=== PATIENT | male | born 1960 | race Caucasian/White ===

== ENCOUNTER 2017-09-30 08:17 | Observation (INO) ==
[2017-09-30] MEDS ORDERED: Ondansetron 4 MG/2 ML VIAL IVP ONE (08:55)
[2017-09-30] MEDS ORDERED: *HR* HYDROmorphone (PF) 1 MG/ML SYRINGE IVP ONE (09:00)
[2017-09-30] MEDS ORDERED: 0.9 % Sodium Chloride 1,000 ML IVC ONE (09:01)
--- NOTE | 2017-09-30 09:07 | Emergency Department Note ---
Disposition Clinical Impression: Appendicitis Qualifiers: Appendicitis type: acute appendicitis Acute appendicitis type: unspecified acute appendicitis type Qualified Code(s): K35.80 - Unspecified acute appendicitis Disposition: Admitted As Inpatient Condition: Fair Time of Disposition: 10:32 General Adult HPI - General Chief complaint: ED Abdominal Pain Stated complaint: abd pain Time Seen by Provider: 09/30/17 08:34 Source: patient, family Limitations: no limitations Nursing Notes Reviewed: Yes Vital Signs Reviewed: Yes - History of Present Illness HPI Narrative: Patient is a 57-year-old male with a history of high cholesterol and hernia repair performed one year ago presenting with a complaint of right lower quadrant abdominal pain and diffuse cramping is been going on since 1600 yesterday. The patient states the pain onset suddenly describes the right lower quadrant pain as a ache that is a 10 out of 10 and then he also has noted diffuse abdominal cramping that is intermittent. He states that the pain has been worsening since that time. He states that if he is standing up the pain feels better if he is sitting down pain feels worse he does not notice any other correlations. The patient states he also has associated nausea and loss of appetite. He denies any fevers, chills, vomiting, chest pain or shortness of breath, flank pain, urinary symptoms such as dysuria or discharge and also denies any testicular pain. Discussed denies any rash. Pain Scale: 10 - Related Data Home Medications Medication Instructions Recorded Confirmed Biotin 1,000 mcg PO DAILY 12/18/16 09/30/17 Cod Liver Oil 1 each PO DAILY 12/18/16 09/30/17 Folic Acid 0.4 mg PO DAILY 12/18/16 09/30/17 Magnesium Amino Acid Chelate 200 mg PO DAILY 12/18/16 09/30/17 [Magnesium] Selenium 200 mcg PO DAILY 12/18/16 09/30/17 Vitamin K2 40 mcg PO DAILY 12/18/16 09/30/17 Zinc [Zinc Lozenge] 50 mg PO DAILY 12/18/16 09/30/17 Arginine HCl [l-Arginine] 1,000 mg PO DAILY 09/30/17 09/30/17 Ascorbic Acid [Vitamin C] 500 mg PO DAILY 09/30/17 09/30/17 Cholecalciferol (Vitamin D3) 2,000 unit PO DAILY 11/05/17 11/05/17 [Vitamin D] Allergies Allergy/AdvReac Type Severity Reaction Status Date / Time phenazopyridine AdvReac Unknown "unable to Verified 09/30/17 08:28 [From Pyridium] get out of bed" per patient Review of Systems: Constitutional: No fever, chills Vision: No blurred vision ENT: No rhinorrhea Respiratory: No cough, no shortness of breath Allergic: No allergies : No blood in urine, no dysuria, no discharge or testicular pain GI: No blood in stool, no vomiting or diarrhea. No black or tarry stool or blood. Patient does have diffuse abdominal pain greatest in the right lower quadrant. Hematologic: No bruising Dermatologic: No skin rash Musculoskeletal: No pain in the extremities. No flank pain. Neuro: No numbness of the extremities All systems ED: reviewed and negative except as stated. Past Medical History - Past Medical History Medical history: Reports: cancer, hyperlipidemia Surgical history: Reports: herniorrhaphy, orthopedic, other, other Psychiatric history: Reports: anxiety - Social History Smoking Status: Never smoker Smokeless Tobacco Status: No Alcohol use: Reports: rarely Drug use: Reports: none Physical Exam Patient does appear to be in mild to moderate discomfort he is splinting up in bed. He is able to speak in full sentences. CONSTITUTIONAL: Alert and oriented X3, well-nourished, well appearing. HEAD: Normocephalic; atraumatic. EYES: PERRL, no scleral icterus. NOSE: The nose is normal in appearance without rhinorrhea RESP: Normal chest excursion with respiration; breath sounds clear and equal bilaterally; no wheezes, rhonchi, or rales CARD: Regular rhythm, without murmurs, rub or gallop ABD: Patient has diffuse abdominal pain with greatest tenderness in the right lower quadrant he does have rigidity and he is severely tender with mild palpation in that region. SKIN: Normal for age and race; warm and dry; no apparent lesions - General Limitations: no limitations General appearance: alert, in no apparent distress Course Course Narrative: Patient is a 57-year-old male with a past medical history of a hernia repair surgery that was done 1 year ago he is presenting with right lower quadrant pain that started suddenly associated symptoms include loss of appetite and nausea. Plan as stated abdominal lab workup on him. I have also ordered for a CT scan with IV contrast to rule out appendicitis. I treated his pain and his nausea. Will reevaluate and discuss labs and they are available. - Reevaluation(s) Reevaluation #1: Patient CT scan of his abdomen reveals an uncomplicated appendicitis. We will add Zosyn at the surgeon's request. I discussed Patient case with Dr. Yañez she agrees to accept the patient for surgery. Time: 10:30 Vital Signs Temperature 97.7 F 09/30/17 08:24 Pulse Rate 60 09/30/17 08:24 Respiratory Rate 16 09/30/17 08:24 Blood Pressure 129/87 09/30/17 08:24 O2 Sat by Pulse Oximetry 97 09/30/17 08:24 Temperature 97.7 F 09/30/17 08:24 Pulse Rate 81 09/30/17 11:04 Respiratory Rate 17 09/30/17 11:04 Blood Pressure 117/80 09/30/17 11:04 O2 Sat by Pulse Oximetry 95 09/30/17 11:04 Oxygen Delivery Oxygen Delivery Room Air Medical Decision Making - Medical Records Medical records reviewed: Yes I reviewed the patient's medical records. - Lab Data Lab results reviewed: Yes I reviewed the patient's lab results. Result diagrams: 09/30/17 09:08 09/30/17 09:08 Lab Results 09/30/17 09/30/17 09/30/17 Range/Units 08:35 09:08 09:08 WBC 11.3 H (4.3-11.1) K/mcL RBC 5.27 (4.19-5.50) M/mcL Hgb 15.4 (12.9-16.9) g/dL Hct 44.0 (37.5-50.1) % MCV 83.5 (83.0-100.0) fL MCH 29.2 (28.0-33.3) pg MCHC 35.0 (31.6-35.5) g/dL RDW 12.8 (11.5-14.5) % Plt Count 135 L (140-400) K/mcL MPV 9.6 (9.4-12.4) fL Immature Gran % 0.4 (0-4) % Seg Neutrophils % 76.3 % Lymphocytes % 15.3 % Monocytes % 7.1 % Eosinophils % 0.6 % Basophils % 0.3 % Neutrophils # 8.7 (1.6-8.9) K/mcL Lymphocytes # 1.7 (0.6-4.6) K/mcL Monocytes # 0.8 (0.0-1.3) K/mcL Eosinophils # 0.1 (0.0-0.6) K/mcL Basophils # 0.0 (0.0-0.2) K/mcL Sodium 139 (136-145) mEq/L Potassium 3.4 L (3.5-4.5) mEq/L Chloride 106 (98-109) mEq/L Carbon Dioxide 23 (19-29) mEq/L BUN 15 (8-26) mg/dL Creatinine 0.81 (0.72-1.25) mg/dL Est GFR ( Amer) > 60 (> 60) Est GFR (Non-Af Amer) > 60 (> 60) BUN/Creatinine Ratio 19 (6-26) Glucose 81 (70-99) mg/dL Calculated Osmolality 288 (280-300) Lactic Acid (0.5-2.2) mmol/L Calcium 8.6 (8.6-10.8) mg/dL Total Bilirubin 1.2 (0.2-1.2) mg/dL Direct Bilirubin 0.4 (0.0-0.5) mg/dL Indirect Bilirubin 0.8 (0.0-1.2) mg/dL AST 25 (5-34) Units/L ALT 33 (0-55) Units/L Alkaline Phosphatase 82 (38-126) Units/L Serum Total Protein 7.2 (6.0-8.3) g/dL Albumin 3.8 (3.5-5.0) g/dL Globulin 3.4 (2.4-3.5) g/dL Albumin/Globulin Ratio 1.1 (1.1-2.2) Amylase 58 (25-125) Units/L Lipase 42 (8-78) Units/L Urine Color Yellow (Yellow) Urine Clarity Clear (Clear) Urine pH 6.5 (5.0-8.0) pH Units Ur Specific Cache 1.016 (1.010-1.025) Urine Protein Negative (Neg-Trace) mg/dL Urine Glucose (UA) Normal (Normal) mg/dL Urine Ketones Negative (Negative) mg/dL Urine Blood Negative (Negative) Urine Nitrite Negative (Negative) Urine Bilirubin Negative (Negative) Urine Urobilinogen Normal (Normal) mg/dL Ur Leukocyte Esterase Negative (Negative) Ur Culture Indicated? NO (NO) 09/30/17 Range/Units 09:08 WBC (4.3-11.1) K/mcL RBC (4.19-5.50) M/mcL Hgb (12.9-16.9) g/dL Hct (37.5-50.1) % MCV (83.0-100.0) fL MCH (28.0-33.3) pg MCHC (31.6-35.5) g/dL RDW (11.5-14.5) % Plt Count (140-400) K/mcL MPV (9.4-12.4) fL Immature Gran % (0-4) % Seg Neutrophils % % Lymphocytes % % Monocytes % % Eosinophils % % Basophils % % Neutrophils # (1.6-8.9) K/mcL Lymphocytes # (0.6-4.6) K/mcL Monocytes # (0.0-1.3) K/mcL Eosinophils # (0.0-0.6) K/mcL Basophils # (0.0-0.2) K/mcL Sodium (136-145) mEq/L Potassium (3.5-4.5) mEq/L Chloride (98-109) mEq/L Carbon Dioxide (19-29) mEq/L BUN (8-26) mg/dL Creatinine (0.72-1.25) mg/dL Est GFR ( Amer) (> 60) Est GFR (Non-Af Amer) (> 60) BUN/Creatinine Ratio (6-26) Glucose (70-99) mg/dL Calculated Osmolality (280-300) Lactic Acid 1.2 (0.5-2.2) mmol/L Calcium (8.6-10.8) mg/dL Total Bilirubin (0.2-1.2) mg/dL Direct Bilirubin (0.0-0.5) mg/dL Indirect Bilirubin (0.0-1.2) mg/dL AST (5-34) Units/L ALT (0-55) Units/L Alkaline Phosphatase (38-126) Units/L Serum Total Protein (6.0-8.3) g/dL Albumin (3.5-5.0) g/dL Globulin (2.4-3.5) g/dL Albumin/Globulin Ratio (1.1-2.2) Amylase (25-125) Units/L Lipase (8-78) Units/L Urine Color (Yellow) Urine Clarity (Clear) Urine pH (5.0-8.0) pH Units Ur Specific Cache (1.010-1.025) Urine Protein (Neg-Trace) mg/dL Urine Glucose (UA) (Normal) mg/dL Urine Ketones (Negative) mg/dL Urine Blood (Negative) Urine Nitrite (Negative) Urine Bilirubin (Negative) Urine Urobilinogen (Normal) mg/dL Ur Leukocyte Esterase (Negative) Ur Culture Indicated? (NO) - Radiology Data Radiology results reviewed: Yes I reviewed the patient's radiology results. Abdomen/Pelvis CT 09/30/17 08:52 IMPRESSION: Evidence of acute uncomplicated appendicitis. D/ / Socorro Hernandes Cha, MD / Socorro Hernandes Cha, MD Interpreting Provider: Socorro Hernandes Cha, MD Critical Care Time Critical Care Time: Yes Total Critical Care Time: 35 Attestation: Rectal care time 35 minutes managing acute appendicitis. Attestation Statement - Attestation Attestation: Patient was seen with resident physician. I reviewed the history, physical, assessment and plan, and agree with the findings. I also personally evaluated this patient and had [id number] time with this patient. 57-year-old male presents to the emergency department with one-day history of right lower quadrant abdominal pain. Patient states the pain started suddenly it is focused in the right lower quadrant it does not radiate. He has not had any changes in bowel or bladder habits. He has not had nausea vomiting. He denies fevers or chills. Patient's states that he does not like going to the doctor and this is definitely out of the ordinary for him to want to come in for evaluation and treatment. On examination vital signs are stable. ENT is unremarkable. Heart and lungs are both normal. Abdomen is soft but there is definitely guarding and a large amount of tenderness in the right lower quadrant. The pain is specifically focused to that location. Neurologically the patient is intact. ED course we will do an appendicitis workup for this patient including a CT scan with IV contrast. We will also check lab testing. CT scan of the abdomen and pelvis revealed acute appendicitis. We contacted the surgeon. Patient was taken from the ER to the OR for definitive surgical management of his acute appendicitis. Critical care time 35 minutes. We will also treat the patient's pain and/or best to help him be comfortable. Agree with the resident physician assessment and plan.
[2017-09-30 09:13] LABS: Bilirubin,Urine Negative (Negative); Blood,Urine Negative (Negative); Clarity,Urine Clear (Clear); Color,Urine Yellow (Yellow); Glucose,Urine (UA) Normal (Normal); Ketones,Urine Negative (Negative); Leukocyte Esterase,Urine Negative (Negative); Nitrite,Urine Negative (Negative); PH,Urine 6.5 pH Units (5.0-8.0); Protein,Urine Negative (Neg-Trace); Specific Gravity,Urine 1.016 (1.010-1.025); Urobilinogen,Urine Normal (Normal)
[2017-09-30 09:17] LABS: Basophils % 0.3 %; Eosinophils # 0.1 K/mcL (0.0-0.6); Eosinophils % 0.6 %; Hemoglobin 15.4 g/dL (12.9-16.9); Immature Granulocytes % 0.4 % (0-4); Lymphocytes # 1.7 K/mcL (0.6-4.6); Lymphocytes % 15.3 %; Mean Corpuscular Hemoglobin 29.2 pg (28.0-33.3); Mean Corpuscular Volume 83.5 fL (83.0-100.0); Mean Platelet Volume 9.6 fL (9.4-12.4); Monocytes # 0.8 K/mcL (0.0-1.3); Monocytes % 7.1 %; Neutrophils # 8.7 K/mcL (1.6-8.9); Platelet Count 135 K/mcL (140-400); Red Blood Count 5.27 M/mcL (4.19-5.50); Red Cell Distribution Width 12.8 % (11.5-14.5); Segmented Neutrophils % 76.3 %
[2017-09-30 09:31] LABS: Alanine Aminotransferase 33 Units/L (0-55); Albumin 3.8 g/dL (3.5-5.0); Albumin/Globulin Ratio 1.1 (1.1-2.2); Alkaline Phosphatase 82 Units/L (38-126); Amylase 58 Units/L (25-125); Aspartate Amino Transferase 25 Units/L (5-34); BUN/Creatinine Ratio 19 (6-26); Bilirubin,Direct 0.4 mg/dL (0.0-0.5); Bilirubin,Indirect 0.8 mg/dL (0.0-1.2); Bilirubin,Total 1.2 mg/dL (0.2-1.2); Blood Urea Nitrogen 15 mg/dL (8-26); Calcium 8.6 mg/dL (8.6-10.8); Carbon Dioxide 23 mEq/L (19-29); Chloride 106 mEq/L (98-109); Globulin 3.4 g/dL (2.4-3.5); Glucose 81 mg/dL (70-99); Lipase 42 Units/L (8-78); Osmolality,Calculated 288 (280-300); Potassium 3.4 mEq/L (3.5-4.5); Sodium 139 mEq/L (136-145); Total Protein 7.2 g/dL (6.0-8.3); eGFR For African Americans > 60 (> 60); eGFR For Non-African Americans > 60 (> 60)
[2017-09-30] MEDS ORDERED: Piperacillin/Tazobactam 3.375 GM in D5% in Water 50 ML IVPB ONE (10:38)
[2017-09-30] MEDS ORDERED: Piperacillin/Tazobactam 3.375 GM in D5% in Water (Mini-Bag+) 100 ML IVPB ONE (10:45)
--- NOTE | 2017-09-30 10:56 | General Surg History&Physical ---
<Vu James - Last Filed: 09/30/17 11:01> Date of Encounter: 09/30/17 Time of Encounter: 10:30 Assessment and Plan (1) Appendicitis Current Visit: Yes Status: Acute Patient presented to the emergency department with complaint of right lower quadrant abdominal pain. CT scan performed performed on 09/30/17 demonstrated the presence of uncomplicated appendicitis. White count elevated at 11.3. Vital signs within normal limits. Plan: -NPO. -Zosyn 3.375g. -Patient will be taken surgery. Qualifiers: Appendicitis type: acute appendicitis Acute appendicitis type: unspecified acute appendicitis type Qualified Code(s): K35.80 - Unspecified acute appendicitis History of Present Illness Chief complaint: Right lower quadrant abdominal pain HPI: Mr. Pop is a 57 year old male with a past medical history of hyperlipidemia and hernia repair one year ago who presented to the emergency department with chief complaint of right lower quadrant abdominal pain. He states this pain started at approximately 4 PM last evening. It was accompanied by nausea and a loss of appetite. Patient has not eaten anything since then. He describes this pain as diffuse abdominal pain that is worse in the right lower quadrant. He rates his pain 10 out of 10. Patient notes that his pain is relieved upon standing and is made worse with sitting. No other exacerbating or relieving factors. Patient denies having any fever, chills, or vomiting.Upon arrival to the emergency department, patient's vital signs were within normal limits. He had elevated white count of 11.3. CT scan of the abdomen revealed the presence of uncomplicated appendicitis. Pain and nausea are well-controlled with medication administered in the ER. Patient was started on Zosyn. He will be taken to surgery. Past Med Surg Social Fam HX - Past Medical History Medical history: cancer, hyperlipidemia Psychiatric history: anxiety - Past Surgical History Surgical History: herniorrhaphy, orthopedic, other, other - Social History Smoking Status: Never smoker Smokeless Tobacco Status: No Alcohol use: rarely Drug use: none Medications and Allergies Biotin 1,000 mcg PO DAILY 12/18/16 [History] Cod Liver Oil 1 each PO DAILY 12/18/16 [History] Folic Acid 0.4 mg PO DAILY 12/18/16 [History] Magnesium Amino Acid Chelate [Magnesium] 200 mg PO DAILY 12/18/16 [History] Selenium 200 mcg PO DAILY 12/18/16 [History] Vitamin K2 40 mcg PO DAILY 12/18/16 [History] Zinc [Zinc Lozenge] 50 mg PO DAILY 12/18/16 [History] Arginine HCl [l-Arginine] 1,000 mg PO DAILY 09/30/17 [History] Ascorbic Acid [Vitamin C] 500 mg PO DAILY 09/30/17 [History] Cholecalciferol (Vitamin D3) [Vitamin D] 2,000 unit PO DAILY 09/30/17 [History] 3 Allergy/AdvReac Type Severity Reaction Status Date / Time phenazopyridine AdvReac Unknown "unable to Verified 09/30/17 08:28 [From Pyridium] get out of bed" per patient Review of Systems All systems PM: A 10-system review of systems was performed and is negative for pertinent findings except as documented above in the HPI. - Constitutional anorexia, no chills, no excessive sweating, no fatigue, no fever(s), no lethargy , no malaise - Cardiovascular no chest pain, no chest pain at rest, no chest pain with activity, no pedal edema, no rapid heart rate - Respiratory no dyspnea on exertion, no wheezing - Gastrointestinal abdominal pain, cramping, no bloating, no diarrhea, no heartburn - Psychiatric change in appetite General Surgery Exam Initial Vital Signs Temp Pulse Resp BP Pulse Ox 97.7 F 60 16 129/87 97 09/30/17 08:24 09/30/17 08:24 09/30/17 08:24 09/30/17 08:24 09/30/17 08:24 - General physical appearance well developed, well nourished, moderate pain - Respiratory normal expansion, normal respiratory effort, clear to percussion, clear to auscultation - Cardiovascular Cardiovascular exam: Present: RRR, no murmurs/rubs/gallops - Abdomen Abdomen general surgery: Present: bowel sounds present, soft, tender Abdominal Tenderness: Present: RLQ, diffusely - Psychiatric Psychiatric general surgery: Present: appropriate, oriented to person, oriented to place, oriented to time, speech is normal, memory intact Results - Labs 09/30/17 09:08 09/30/17 09:08 Abnormal lab results WBC 11.3 K/mcL (4.3-11.1) H 09/30/17 09:08 Plt Count 135 K/mcL (140-400) L 09/30/17 09:08 Potassium 3.4 mEq/L (3.5-4.5) L 09/30/17 09:08 Diabetes panel 09/30/17 Range/Units 09:08 Sodium 139 (136-145) mEq/L Potassium 3.4 L (3.5-4.5) mEq/L Chloride 106 (98-109) mEq/L Carbon Dioxide 23 (19-29) mEq/L BUN 15 (8-26) mg/dL Creatinine 0.81 (0.72-1.25) mg/dL Glucose 81 (70-99) mg/dL Calcium 8.6 (8.6-10.8) mg/dL AST 25 (5-34) Units/L ALT 33 (0-55) Units/L Alkaline Phosphatase 82 (38-126) Units/L Albumin 3.8 (3.5-5.0) g/dL Calcium panel 09/30/17 Range/Units 09:08 Calcium 8.6 (8.6-10.8) mg/dL Albumin 3.8 (3.5-5.0) g/dL Pituitary panel 09/30/17 Range/Units 09:08 Sodium 139 (136-145) mEq/L Potassium 3.4 L (3.5-4.5) mEq/L Chloride 106 (98-109) mEq/L Carbon Dioxide 23 (19-29) mEq/L BUN 15 (8-26) mg/dL Creatinine 0.81 (0.72-1.25) mg/dL Glucose 81 (70-99) mg/dL Calcium 8.6 (8.6-10.8) mg/dL Adrenal panel 09/30/17 Range/Units 09:08 Sodium 139 (136-145) mEq/L Potassium 3.4 L (3.5-4.5) mEq/L Chloride 106 (98-109) mEq/L Carbon Dioxide 23 (19-29) mEq/L BUN 15 (8-26) mg/dL Creatinine 0.81 (0.72-1.25) mg/dL Glucose 81 (70-99) mg/dL Calcium 8.6 (8.6-10.8) mg/dL Total Bilirubin 1.2 (0.2-1.2) mg/dL AST 25 (5-34) Units/L ALT 33 (0-55) Units/L Alkaline Phosphatase 82 (38-126) Units/L Albumin 3.8 (3.5-5.0) g/dL All other labs normal. <Nisha Yañez - Last Filed: 09/30/17 11:45> Date of Encounter: 09/30/17 Assessment and Plan (1) Acute appendicitis Current Visit: Yes Status: Acute The assessment and plan as outlined above was discussed with the patient and/or family members who expressed understanding and agreement. All questions were answered. Discussed with the patient his CT scan shows acute appendicitis with a fecalith , no obvious perforation. White blood cell count is elevated at 11.3. He has received Zosyn in the ER. He has been nothing by mouth since yesterday at 5 PM. Then a laparoscopic appendectomy, possible open, risks and benefits were discussed with the patient and he wishes to proceed. He will remain nothing by mouth. IV fluid hydration. Urine pain control. Antibiotics. Qualifiers: Acute appendicitis type: with localized peritonitis Qualified Code(s): K35.3 - Acute appendicitis with localized peritonitis (2) Leukocytosis Current Visit: Yes Status: Acute The assessment and plan as outlined above was discussed with the patient and/or family members who expressed understanding and agreement. All questions were answered. Received Zosyn in the ER Qualifiers: Leukocytosis type: unspecified Qualified Code(s): D72.829 - Elevated white blood cell count, unspecified History of Present Illness HPI: Mr. Pop is a 57 year old male who developed crampy abdominal pain throughout his abdomen yesterday and dull right lower quadrant pain. Throughout the night the pain got worse. He had some nausea but without emesis. This began yesterday about 4 PM. He denies any diarrhea and no dysuria. He has had no fevers chills or night sweats. Due to the pain getting worse he presented to the ED and a CT scan of the abdomen and pelvis was done which showed an uncomplicated acute right lower quadrant appendicitis with a fecalith. White blood cell count is minimally elevated at 11.3. Past Med Surg Social Fam HX - Past Medical History Source: patient Medical history: cancer (left ear basal cell) - Past Surgical History Surgical History: herniorrhaphy, orthopedic, other (Left knee meniscus tear surgery 2, left rotator cuff repair) - Social History Occupational status: employed Current living situation: Home - Independent, With Family Review of Systems All systems PM: reviewed and no additional remarkable complaints except as stated All systems PM: A 10-system review of systems was performed and is negative for pertinent findings except as documented above in the HPI. General Surgery Exam Initial Vital Signs Temp Pulse Resp BP Pulse Ox 97.7 F 60 16 129/87 97 09/30/17 08:24 09/30/17 08:24 09/30/17 08:24 09/30/17 08:24 09/30/17 08:24 - General physical appearance well developed, well nourished, no distress - Eyes PERRL, normal ocular movement - ENT normal mucosa, normocephalic - Neck trachea midline - Respiratory normal expansion, clear to auscultation - Cardiovascular Cardiovascular exam: Present: RRR - Abdomen Abdomen general surgery: Present: bowel sounds present, soft, tender. Absent: guarding, rebound Abdominal Tenderness: Present: RLQ (More right lower quadrant), diffusely - Integumentary Integumentary general surgery: Present: warm and dry, no abnormal pigmentation - Neurologic Present: CN 2-12 grossly intact - Musculoskeletal Present: normal posture - Psychiatric Psychiatric general surgery: Present: A&Ox3, speech is normal Results - Labs 09/30/17 09:08 09/30/17 09:08 Abnormal lab results WBC 11.3 K/mcL (4.3-11.1) H 09/30/17 09:08 Plt Count 135 K/mcL (140-400) L 09/30/17 09:08 Potassium 3.4 mEq/L (3.5-4.5) L 09/30/17 09:08 All other labs normal. - Imaging CT scan - abdomen: report reviewed, image reviewed CT scan - pelvis: report reviewed, image reviewed - Attending Attestation I examined this patient and my medical decision-making was reviewed with the Resident Physician. I agree with the documented findings, disposition and treatment plan as described except to the extent set forth below.
[2017-09-30] MEDS ORDERED: Ringers Solution, Lactated 1,000 ML ONE (11:32)
[2017-09-30] MEDS ORDERED: *HR* Rocuronium Bromide 50 MG/5 ML VIAL ONE (11:36)
[2017-09-30] MEDS ORDERED: *HR* Succinylcholine 200 MG/10 ML VIAL IVP ONE (11:36)
[2017-09-30] MEDS ORDERED: Lidocaine -MPF 2% 2 ML VIAL ONE (11:36)
[2017-09-30] MEDS ORDERED: Lidocaine -MPF 4% 5 ML AMPUL ONE (11:36)
[2017-09-30] MEDS ORDERED: *HR* Midazolam HCl 2 MG/2 ML VIAL ONE (11:37)
[2017-09-30] MEDS ORDERED: *HR* FentaNYL (PF) 100 MCG/2 ML VIAL ONE ×2 (11:37→12:50)
[2017-09-30] MEDS ORDERED: *HR* Propofol 200 MG/20 ML VIAL IVP ONE (11:37)
[2017-09-30] MEDS ORDERED: Acetaminophen IV 1,000 MG/100 ML INFUS..BTL ONE (11:43)
[2017-09-30] MEDS ORDERED: Metoclopramide 10 MG/2 ML VIAL ONE (11:43)
[2017-09-30] MEDS ORDERED: Famotidine 20 MG/2 ML VIAL ONE (11:44)
--- NOTE | 2017-09-30 12:00 | Anesthesia Evaluation PreOp ---
Date of Encounter: 09/30/17 Time of Encounter: 11:41 - Past History Planned Operation: Lap Appy Cardiac History: Denies any Significant Hx Pulmonary History: Denies Any Significant HX CLINICAL NURSING DIRECTOR History: Denies Any Significant HX Other Medical History: Denies Any Significant HX, Other (BAsal Cell Ca L-ear) Anesthesia History: No Prior Anesthetic Complications, Past Anesthesia (B-knee scopes/Meniscus repair, Shoulder scope, Inguinal Hernia Repairs) Alcohol Use: rarely Drug use: none Medications and Allergies Biotin 1,000 mcg PO DAILY 12/18/16 [History] Cod Liver Oil 1 each PO DAILY 12/18/16 [History] Folic Acid 0.4 mg PO DAILY 12/18/16 [History] Magnesium Amino Acid Chelate [Magnesium] 200 mg PO DAILY 12/18/16 [History] Selenium 200 mcg PO DAILY 12/18/16 [History] Vitamin K2 40 mcg PO DAILY 12/18/16 [History] Zinc [Zinc Lozenge] 50 mg PO DAILY 12/18/16 [History] Arginine HCl [l-Arginine] 1,000 mg PO DAILY 09/30/17 [History] Ascorbic Acid [Vitamin C] 500 mg PO DAILY 09/30/17 [History] Cholecalciferol (Vitamin D3) [Vitamin D] 2,000 unit PO DAILY 09/30/17 [History] 3 Allergy/AdvReac Type Severity Reaction Status Date / Time phenazopyridine AdvReac Unknown "unable to Verified 09/30/17 08:28 [From Pyridium] get out of bed" per patient - Meds/Allergy Pre-op Review Medications Reviewed: Yes Allergies Reviewed: Yes Beta Blockers on Current Med List: No Anesthesia Results - Labs 09/30/17 09:08 09/30/17 09:08 Laboratory Results WBC 11.3 K/mcL (4.3-11.1) H 09/30/17 09:08 RBC 5.27 M/mcL (4.19-5.50) 09/30/17 09:08 Hgb 15.4 g/dL (12.9-16.9) 09/30/17 09:08 Hct 44.0 % (37.5-50.1) 09/30/17 09:08 MCV 83.5 fL (83.0-100.0) 09/30/17 09:08 MCH 29.2 pg (28.0-33.3) 09/30/17 09:08 MCHC 35.0 g/dL (31.6-35.5) 09/30/17 09:08 RDW 12.8 % (11.5-14.5) 09/30/17 09:08 Plt Count 135 K/mcL (140-400) L 09/30/17 09:08 MPV 9.6 fL (9.4-12.4) 09/30/17 09:08 Immature Gran % 0.4 % (0-4) 09/30/17 09:08 Seg Neutrophils % 76.3 % 09/30/17 09:08 Lymphocytes % 15.3 % 09/30/17 09:08 Monocytes % 7.1 % 09/30/17 09:08 Eosinophils % 0.6 % 09/30/17 09:08 Basophils % 0.3 % 09/30/17 09:08 Neutrophils # 8.7 K/mcL (1.6-8.9) 09/30/17 09:08 Lymphocytes # 1.7 K/mcL (0.6-4.6) 09/30/17 09:08 Monocytes # 0.8 K/mcL (0.0-1.3) 09/30/17 09:08 Eosinophils # 0.1 K/mcL (0.0-0.6) 09/30/17 09:08 Basophils # 0.0 K/mcL (0.0-0.2) 09/30/17 09:08 Sodium 139 mEq/L (136-145) 09/30/17 09:08 Potassium 3.4 mEq/L (3.5-4.5) L 09/30/17 09:08 Chloride 106 mEq/L (98-109) 09/30/17 09:08 Carbon Dioxide 23 mEq/L (19-29) 09/30/17 09:08 BUN 15 mg/dL (8-26) 09/30/17 09:08 Creatinine 0.81 mg/dL (0.72-1.25) 09/30/17 09:08 Est GFR ( Amer) > 60 (> 60) 09/30/17 09:08 Est GFR (Non-Af Amer) > 60 (> 60) 09/30/17 09:08 BUN/Creatinine Ratio 19 (6-26) 09/30/17 09:08 Glucose 81 mg/dL (70-99) 09/30/17 09:08 Calculated Osmolality 288 (280-300) 09/30/17 09:08 Lactic Acid 1.2 mmol/L (0.5-2.2) 09/30/17 09:08 Calcium 8.6 mg/dL (8.6-10.8) 09/30/17 09:08 Total Bilirubin 1.2 mg/dL (0.2-1.2) 09/30/17 09:08 Direct Bilirubin 0.4 mg/dL (0.0-0.5) 09/30/17 09:08 Indirect Bilirubin 0.8 mg/dL (0.0-1.2) 09/30/17 09:08 AST 25 Units/L (5-34) 09/30/17 09:08 ALT 33 Units/L (0-55) 09/30/17 09:08 Alkaline Phosphatase 82 Units/L (38-126) 09/30/17 09:08 Serum Total Protein 7.2 g/dL (6.0-8.3) 09/30/17 09:08 Albumin 3.8 g/dL (3.5-5.0) 09/30/17 09:08 Globulin 3.4 g/dL (2.4-3.5) 09/30/17 09:08 Albumin/Globulin Ratio 1.1 (1.1-2.2) 09/30/17 09:08 Amylase 58 Units/L (25-125) 09/30/17 09:08 Lipase 42 Units/L (8-78) 09/30/17 09:08 Urine Color Yellow (Yellow) 09/30/17 08:35 Urine Clarity Clear (Clear) 09/30/17 08:35 Urine pH 6.5 pH Units (5.0-8.0) 09/30/17 08:35 Ur Specific Kirkman 1.016 (1.010-1.025) 09/30/17 08:35 Urine Protein Negative mg/dL (Neg-Trace) 09/30/17 08:35 Urine Glucose (UA) Normal mg/dL (Normal) 09/30/17 08:35 Urine Ketones Negative mg/dL (Negative) 09/30/17 08:35 Urine Blood Negative (Negative) 09/30/17 08:35 Urine Nitrite Negative (Negative) 09/30/17 08:35 Urine Bilirubin Negative (Negative) 09/30/17 08:35 Urine Urobilinogen Normal mg/dL (Normal) 09/30/17 08:35 Ur Leukocyte Esterase Negative (Negative) 09/30/17 08:35 Ur Culture Indicated? NO (NO) 09/30/17 08:35 Impressions Abdomen/Pelvis CT 09/30/17 08:52 IMPRESSION: Evidence of acute uncomplicated appendicitis. D/ / Socorro Hernandes Cha, MD / Socorro Hernandes Cha, MD Interpreting Provider: Socorro Hernandes Cha, MD Anesthesia Exam Vital Signs Temp Pulse Resp BP Pulse Ox 09/30/17 11:32 79 16 137/95 94 09/30/17 11:04 81 17 117/80 95 09/30/17 08:24 97.7 F 60 16 129/87 97 Intake and Output 09/30/17 09/30/17 09/30/17 00:59 07:59 15:59 Other: Stool Characteristics Normal for Patient Stool Color Brown Weight 77.111 kg Patient Weight 09/30/17 22:59 Weight 77.111 kg Height: 5'11" Weight: 170# BMI = 24 NPO (# of Hours): MNOc Pain Scale Used: Numeric (1 - 10) - HEENT Pupil (Motor): Pupils equal Mallampati: II Teeth: Normal Oral Opening: Greater than 3 - CLINICAL NURSING DIRECTOR LOC: Oriented CLINICAL NURSING DIRECTOR Motor: Normal RUE, Normal LUE, Normal RLE, Normal LLE, Normal Face CLINICAL NURSING DIRECTOR Sensory: Normal: RUE, LUE, RLE, LLE, Face - Cardiac Rhythm: Regular Murmur: None - Pulmonary Breath Sounds: bilateral Clear Respiratory Effort: Symmetrical Anesthesia Assess/Plan ASA Score: 2, E Modified Rittman Scale for Level of Consciousness: Cooperative, oriented, and tranquil Anesthetic Plan: General Monitoring Plan: Standard Monitors Recovery Plan: PACU Anes Supervising Prov Stmt: Pt seen/evaluated, R&B discussed, questions answered and consent obtained. Cathie Ac MD
[2017-09-30] MEDS ORDERED: *HR* Labetalol 20 MG/4 ML SYRINGE IVP PRN (12:04)
[2017-09-30] MEDS ORDERED: *HR* HYDROmorphone (PF) 1 MG/ML SYRINGE IVP PRN (12:04)
[2017-09-30] MEDS ORDERED: *HR* Promethazine 25 MG/ML VIAL IVP PRN ×2 (12:04→14:33)
[2017-09-30] MEDS ORDERED: *HR* Magnesium Sulfate 1 GM/2 ML VIAL ONE (12:50)
[2017-09-30] MEDS ORDERED: Ketorolac 30 MG/ML VIAL ONE (12:51)
[2017-09-30] MEDS ORDERED: Neostigmine Methylsulfate 3 MG/3 ML SYRINGE ONE (13:15)
--- NOTE | 2017-09-30 13:35 | Operative Note ---
Date of procedure: 09/30/17 Pre-op diagnosis: acute appendicitis Post-op diagnosis: same Procedure: Laparoscopic appendectomy Complications: none immediate Anesthesia: GETA, local Local Anesthetics: 0.5% Sensorcaine HCL SubQ (cc) (20) Surgeon: Nisha Yañez Talent Acquisition Sourcer Other: 10 Specimen: appendix Condition: stable Disposition: PACU Procedure in Detail: The patient was brought into the operating suite and placed supine on the operating table. Sign-in was performed and everyone was in agreement. Anesthesia was induced and patient was endotracheally intubated by anesthesia without incident. An OG tube was placed by anesthesia. The abdomen was prepped and draped in the usual sterile fashion. A timeout was performed and again everyone was in agreement. A supraumbilical incision was made through the skin and the subcutaneous tissue with an 11 blade. Towel clamps were placed on either side of the umbilicus for retraction. S-retractors were used to dissect down to the anterior abdominal wall linea alba fascia. A Veress needle was placed into this incision and a water drop test confirmed placement and the abdomen was insufflated. We then entered the abdomen with the 5 mm 0 degree laparoscope on a 5 mm X-adithya trocar. The area under entry was visualized and there was no bleeding and no apparent bowel injury. We placed a suprapubic 5 mm port under direct visualization after first incising the skin with an 11 blade. The laparoscope was placed through this and we exchanged the supraumbilical port for a 12 mm port under direct visualization. We then placed another 5 mm port in the left lower quadrant position under direct visualization after first incising the skin with an 11 blade. The patient was placed in slight Trendelenburg left side down position. The cecum was located as was the appendix. The appendix was grasped and retracted anteriorly and caudally with a laparoscopic Reinaldo. A Maryland was used to dissect between the mesoappendix and the appendix at the base of the cecum. The mesoappendix was transected with a laparoscopic flex-ex ETS stapler using a white load. There was bleeding from the mesenteric artery which was stopped with the medium Hemoclip. The appendiceal staple line was evaluated and there was approximately a centimeter and a half of remaining appendix at the base of the cecum. The appendiceal stump was grasped with the laparoscopic Reinaldo. The appendiceal stump was isolated free from the lateral abdominal wall with gentle blunt dissection and the Maryland. The appendix at the base of the cecum was then transected with a flex ex ETS stapler using a white load. The appendiceal stump and the appendix were placed in a laparoscopic Endo Catch bag and removed via the umbilical incision. The staple lines were evaluated and there was no bleeding and both staple lines were intact. The area was irrigated with sterile saline which was then suctioned free from the abdomen. The insufflation was suctioned free from the abdomen and all trochars removed. We closed the abdominal wall at the supraumbilical incision site with an 0 Vicryl [id number] stitch. A 20 cc of 0.5% Marcaine was injected subcutaneously at the 3 port sites. The skin at the two 5 mm port sites was closed with 4-0 Monocryl interrupted subcuticular stitches. The skin at the supraumbilical incision site was closed with a 4-0 Monocryl running subcuticular stitch. Steri -Strips were applied to the wounds. The patient was extubated in the OR and tolerated the procedure well and was taken to PACU after all lap and instrument counts were correct at the end of the case.
[2017-09-30] MEDS ORDERED: *HR* OxyCODONE/APAP 5/325 TABLET PO PRN (14:33)
[2017-09-30] MEDS ORDERED: Ondansetron 4 MG/2 ML VIAL IVP PRN (14:33)
[2017-09-30] MEDS ORDERED: Naloxone 0.4 MG/ML INJ IVP PRN (14:33)
[2017-09-30] MEDS ORDERED: *HR* Morphine 2 MG/ML SYRINGE IVP PRN (14:33)
[2017-09-30] MEDS: 0.9 % Sodium Chloride 1,000 ML IVC SCH (16:23)
--- NOTE | 2017-09-30 18:48 | Anesthesia Evaluation Post Op ---
Date of Encounter: 09/30/17 Time of Encounter: 14:00 - Vital Signs Vital Signs: Vital Signs Temp Pulse Resp BP Pulse Ox 09/30/17 14:05 97.4 F L 61 12 124/79 97 09/30/17 13:55 65 12 124/79 97 09/30/17 13:45 53 12 124/84 99 09/30/17 13:35 97.9 F 55 12 124/82 97 09/30/17 11:32 79 16 137/95 94 09/30/17 11:04 81 17 117/80 95 09/30/17 08:24 97.7 F 60 16 129/87 97 Intake and Output 09/30/17 09/30/17 09/30/17 07:59 15:59 23:59 Output Total Balance - / -20 Output: Estimated Blood Loss Other: Stool Characteristics Normal for Patient Stool Color Brown Weight 77.111 kg Patient Weight 09/30/17 22:59 Weight 77.111 kg - Lungs Lungs: Clear Ascult./Percussion - Airway Airway: Non-obstructed - Cardiovascular Regular Rate - Mental Status Mental Status: Alert & Oriented, Answers Appropriately - Pain Pain Scale: 0 Pain Scale used: Numeric (1 - 10) - Nausea Vomiting Nausea Vomiting: Not Present - Hydration Hydration: Ice chips, Has not voided - Discharge PostOp Status: Transfer Patient to floor Anes Supervising Prov Stmt: Pt seen/evaluated, VSS and pt has met criteria for discharge to floor. MD Osorio
[2017-10-01] MEDS: 0.9 % Sodium Chloride 1,000 ML IVC SCH (04:08)
[2017-10-01 04:33] LABS: Hematocrit 38.8 % (37.5-50.1); Mean Corpuscular Hemoglobin 29.3 pg (28.0-33.3); Mean Corpuscular Volume 86.2 fL (83.0-100.0); Mean Platelet Volume 9.5 fL (9.4-12.4); Platelet Count 117 K/mcL (140-400); Red Cell Distribution Width 13.1 % (11.5-14.5); Segmented Neutrophils % 73.3 %
[2017-10-01 04:34] LABS: Basophils % 0.2 %; Eosinophils # 0.1 K/mcL (0.0-0.6); Eosinophils % 0.7 %; Immature Granulocytes % 0.5 % (0-4); Lymphocytes # 1.5 K/mcL (0.6-4.6); Lymphocytes % 15.5 %; Monocytes # 0.9 K/mcL (0.0-1.3); Monocytes % 9.8 %
[2017-10-01 04:35] LABS: Hemoglobin 13.2 g/dL (12.9-16.9)
[2017-10-01 10:54] VITALS: BP 121/82
--- NOTE | 2017-10-01 12:32 | Discharge Summary ---
Date of Encounter: 10/01/17 Time of Encounter: 12:27 - Discharge Diagnosis (1) Acute appendicitis Priority: Primary Status: Resolved Qualifiers: Acute appendicitis type: with localized peritonitis Qualified Code(s): K35.3 - Acute appendicitis with localized peritonitis (2) Leukocytosis Priority: Secondary Status: Resolved Qualifiers: Leukocytosis type: unspecified Qualified Code(s): D72.829 - Elevated white blood cell count, unspecified - Discharge Medications Prescriptions: OxyCODONE/APAP 5/325 [Percocet 5/325 MG] 1 each PO Q6HR PRN #28 tablet PRN Reason: Pain (1-5) Docusate [Colace] 100 mg PO BID PRN #30 capsule PRN Reason: Constipation Ibuprofen 800 mg PO Q8H #60 tablet Ondansetron ODT [Zofran ODT] 4 mg PO Q4H PRN #30 tab.rapdis PRN Reason: nausea or vomiting Home Medications: Biotin 1,000 mcg PO DAILY 12/18/16 [History] Cod Liver Oil 1 each PO DAILY 12/18/16 [History] Folic Acid 0.4 mg PO DAILY 12/18/16 [History] Magnesium Amino Acid Chelate [Magnesium] 200 mg PO DAILY 12/18/16 [History] Selenium 200 mcg PO DAILY 12/18/16 [History] Vitamin K2 40 mcg PO DAILY 12/18/16 [History] Zinc [Zinc Lozenge] 50 mg PO DAILY 12/18/16 [History] Arginine HCl [l-Arginine] 1,000 mg PO DAILY 09/30/17 [History] Ascorbic Acid [Vitamin C] 500 mg PO DAILY 09/30/17 [History] Cholecalciferol (Vitamin D3) [Vitamin D3] 2,000 unit PO DAILY 09/30/17 [History] Docusate [Colace] 100 mg PO BID PRN #30 capsule 10/01/17 [Rx] Ibuprofen 800 mg PO Q8H #60 tablet 10/01/17 [Rx] Ondansetron ODT [Zofran ODT] 4 mg PO Q4H PRN #30 tab.rapdis 10/01/17 [Rx] OxyCODONE/APAP 5/325 [Percocet 5/325 MG] 1 each PO Q6HR PRN #28 tablet 10/01/17 [Rx] Allergies/Adverse Reactions: 3 Allergy/AdvReac Type Severity Reaction Status Date / Time phenazopyridine AdvReac Unknown "unable to Verified 09/30/17 08:28 [From Pyridium] get out of bed" per patient General Surgery Exam Initial Vital Signs Temp Pulse Resp BP Pulse Ox 97.7 F 60 16 129/87 97 09/30/17 08:24 09/30/17 08:24 09/30/17 08:24 09/30/17 08:24 09/30/17 08:24 - General physical appearance well developed, well nourished, no distress, moderate pain (States only with activity) - Eyes normal ocular movement - ENT atraumatic, normocephalic - Neck trachea midline, no venous distension - Respiratory normal expansion, normal respiratory effort, clear to percussion, clear to auscultation - Cardiovascular Cardiovascular exam: Present: RRR, 15, 16 - Abdomen Abdomen general surgery: Present: bowel sounds present, soft, tender (Expected postoperative) - Incision Incision: Present: clean and dry, intact - Integumentary Integumentary general surgery: Present: warm and dry, no abnormal pigmentation - Neurologic Present: CN 2-12 grossly intact, normal coordination, normal sensation - Musculoskeletal Present: normal gait, normal posture - Psychiatric Psychiatric general surgery: Present: A&Ox3, appropriate, oriented to person, oriented to place, oriented to time, speech is normal, memory intact Date of admission: 09/30/17 10:50 Primary care physician: Julio Rolle MD Discharging clinician: Nisha Yañez (Zafar Summers) Anticipated date of discharge: 10/01/17 - Patient Status Disposition: Home, Self-Care Condition: Fair Functional capacity at discharge: independent ambulation Overall status at discharge: patient is progressing back to baseline - Discharge Instructions Instructions: Laparoscopic Appendectomy (DC) Follow Up With: Julio Rolle MD [Primary Care Provider] - Marichuy Summers CNP [Advanced Practice Nurse] - 10/16/17 1:40 pm Forms: Inpatient Work/School Release Additional Instructions: General Surgical Discharge Instructions 1. No pushing, pulling, or lifting greater than 15 lbs for FOUR weeks. 2. You may shower beginning today, but no tub baths, soaking, or swimming for 2 weeks. 3. You may resume driving when you are off narcotics and are safe to react in a car. 4. Take ibuprofen every 8 hours. If this does not relieve the discomfort you may take the as needed narcotics. Take narcotics only as directed. Do not take more narcotics then directed and do not share your narcotics with any other person. Do not drink alcohol while on narcotics. 5. Take stool softeners (Colace) or a water based laxative (Miralax) while taking narcotics. You may hold for loose stools. 6. Report any fevers greater than 100.5F, increase abdominal discomfort, drainage that looks like pus, increased redness or pain at the surgical site, or any vomiting. 7. Report any pain in the calves, shortness of breath, or rapid heartbeat. 8. Follow-up in the office as directed. 9. If you were prescribed antibiotics, do not stop them without talking to your provider. - Diet and Activity Activity: increase activity as tolerated Diet: advance to your usual diet - Hospital Course Hospital course: Mr. Pop is a 57 year old male who presented on 09/30/17 for complaints of right lower quadrant abdominal pain. CT was performed which demonstrated the presence of uncomplicated appendicitis with mild leukocytosis at 11.3. He was taken to the operating room where he underwent an uncomplicated laparoscopic appendectomy by Dr. Yañez. The remainder of his hospital course has been unremarkable. His leukocytosis has resolved. He is ambulating and voiding without difficulty, tolerating liquids without nausea or vomiting, passing flatus, vital signs are stable, and he is afebrile. His discomfort is controlled on the current regimen and his presurgery discomfort has resolved. We will begin discharge planning to home with a follow-up in the office in 2 weeks. 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 - Time Spent with Patient Total time spent providing and/or coordinating discharge services: Less than 30 minutes Labs on day of discharge: Labs from last 24 hours 10/01/17 03:56 WBC 9.5 RBC 4.50 Hgb 13.2 D Hct 38.8 MCV 86.2 MCH 29.3 MCHC 34.0 RDW 13.1 Plt Count 117 L MPV 9.5 Immature Gran % 0.5 Seg Neutrophils % 73.3 Lymphocytes % 15.5 Monocytes % 9.8 Eosinophils % 0.7 Basophils % 0.2 Neutrophils # 7.0 Lymphocytes # 1.5 Monocytes # 0.9 Eosinophils # 0.1 Basophils # 0.0
== END 2017-10-01 14:12 | disposition home or self-care (01) ==
LOC: EMEROO 08:17 → 3ANU 08:17
PROVIDERS: ADMIT Surgery; ATTEND Surgery

== ENCOUNTER 2018-01-13 14:08 | Observation (INO) ==
--- NOTE | 2018-01-13 14:42 | Emergency Department Note ---
Disposition Clinical Impression: Chest pain, Near syncope Disposition: Admitted As Inpatient Condition: Fair General Adult HPI - General Chief complaint: ED Chest Pain Stated complaint: CP/ Dizziness Time Seen by Provider: 01/13/18 14:38 Source: patient Limitations: no limitations - History of Present Illness Pain Scale: 8 - Related Data Home Medications Medication Instructions Recorded Confirmed Biotin 1,000 mcg PO DAILY 12/18/16 01/13/18 Cod Liver Oil 1 cap PO DAILY 12/18/16 01/13/18 Folic Acid 0.4 mg PO DAILY 12/18/16 01/13/18 Magnesium Amino Acid Chelate 200 mg PO WESA 12/18/16 01/13/18 [Magnesium] Selenium 200 mcg PO WESA 12/18/16 01/13/18 Vitamin K2 80 mcg PO DAILY 12/18/16 01/13/18 Zinc [Zinc Lozenge] 50 mg PO WESA 12/18/16 01/13/18 Ascorbic Acid [Vitamin C] 500 mg PO DAILY 09/30/17 01/13/18 Cholecalciferol (Vitamin D3) 2,000 unit PO DAILY 09/30/17 01/13/18 [Vitamin D3] Turm/Ging/Caleb/Yuc/Mayur/Silverio/Hor 1 tab PO DAILY 01/13/18 01/13/18 [Tumersaid Tablet] Vitamin B Complex [B Complex] 1 tab PO DAILY 01/13/18 01/13/18 Allergies Allergy/AdvReac Type Severity Reaction Status Date / Time phenazopyridine AdvReac Unknown "unable to Verified 09/30/17 08:28 [From Pyridium] get out of bed" per patient Past Medical History - Past Medical History Medical history: Reports: cancer, other Surgical history: Reports: herniorrhaphy, orthopedic, other Psychiatric history: Reports: no psych history - Social History Smoking Status: Never smoker Smokeless Tobacco Status: No Alcohol use: Reports: occasionally Drug use: Reports: none Physical Exam - General Limitations: no limitations General appearance: alert Course Vital Signs Temperature 98.6 F 01/13/18 14:23 Pulse Rate 72 01/13/18 14:23 Respiratory Rate 18 01/13/18 14:23 Blood Pressure 127/77 01/13/18 14:23 O2 Sat by Pulse Oximetry 97 01/13/18 14:23 Temperature 98.6 F 01/13/18 18:11 Pulse Rate 58 01/13/18 18:11 Respiratory Rate 18 01/13/18 18:11 Blood Pressure 129/78 01/13/18 18:11 O2 Sat by Pulse Oximetry 96 01/13/18 18:11 Oxygen Delivery Oxygen Delivery Room Air Medical Decision Making - Lab Data Result diagrams: 01/13/18 14:44 01/13/18 14:44 Lab Results 01/13/18 01/13/18 01/13/18 Range/Units 14:44 14:44 14:44 WBC 5.3 (4.3-11.1) K/mcL RBC 5.03 (4.19-5.50) M/mcL Hgb 14.5 (12.9-16.9) g/dL Hct 42.8 (37.5-50.1) % MCV 85.1 (83.0-100.0) fL MCH 28.8 (28.0-33.3) pg MCHC 33.9 (31.6-35.5) g/dL RDW 13.0 (11.5-14.5) % Plt Count 159 (140-400) K/mcL MPV 9.7 (9.4-12.4) fL Immature Gran % 0.2 (0-4) % Seg Neutrophils % 57.6 % Lymphocytes % 32.5 % Monocytes % 7.6 % Eosinophils % 1.7 % Basophils % 0.4 % Neutrophils # 3.0 (1.6-8.9) K/mcL Lymphocytes # 1.7 (0.6-4.6) K/mcL Monocytes # 0.4 (0.0-1.3) K/mcL Eosinophils # 0.1 (0.0-0.6) K/mcL Basophils # 0.0 (0.0-0.2) K/mcL Immature Plt Fraction 3.1 (1.1-6.1) % Sodium 139 (136-145) mEq/L Potassium 4.1 (3.5-5.1) mEq/L Chloride 104 (98-107) mEq/L Carbon Dioxide 28 (23-29) mEq/L BUN 18 (6-20) mg/dL Creatinine 0.91 (0.70-1.30) mg/dL Est GFR ( Amer) > 60 (> 60) Est GFR (Non-Af Amer) > 60 (> 60) BUN/Creatinine Ratio 20 (6-26) Glucose 96 (70-105) mg/dL Calculated Osmolality 290 (280-300) Calcium 9.8 (8.6-10.3) mg/dL Troponin I < 0.03 (< 0.04) ng/mL Attestation Statement - Attestation Attestation: I examined this patient and my medical decision-making was reviewed with the Resident Physician. I agree with the documented findings, disposition and treatment plan as described except to the extent set forth below. [id number] time provided Patient states he has gotten chest pain and ultimately for years. Today it felt different. He also felt dizzy. Status post cardiac catheterization 6 years ago without stent deployment. Appears in no acute distress on exam. EKG reviewed by me
[2018-01-13 14:51] LABS: Basophils % 0.4 %; Eosinophils # 0.1 K/mcL (0.0-0.6); Eosinophils % 1.7 %; Hematocrit 42.8 % (37.5-50.1); Hemoglobin 14.5 g/dL (12.9-16.9); Immature Granulocytes % 0.2 % (0-4); Immature Platelets 3.1 % (1.1-6.1); Lymphocytes # 1.7 K/mcL (0.6-4.6); Lymphocytes % 32.5 %; Mean Corpuscular HGB Conc 33.9 g/dL (31.6-35.5); Mean Corpuscular Hemoglobin 28.8 pg (28.0-33.3); Mean Corpuscular Volume 85.1 fL (83.0-100.0); Mean Platelet Volume 9.7 fL (9.4-12.4); Monocytes # 0.4 K/mcL (0.0-1.3); Monocytes % 7.6 %; Platelet Count 159 K/mcL (140-400); Red Blood Count 5.03 M/mcL (4.19-5.50); Segmented Neutrophils % 57.6 %
[2018-01-13 15:06] LABS: BUN/Creatinine Ratio 20 (6-26); Blood Urea Nitrogen 18 mg/dL (6-20); Calcium 9.8 mg/dL (8.6-10.3); Carbon Dioxide 28 mEq/L (23-29); Chloride 104 mEq/L (98-107); Glucose 96 mg/dL (70-105); Osmolality,Calculated 290 (280-300); Potassium 4.1 mEq/L (3.5-5.1); Sodium 139 mEq/L (136-145); eGFR For African Americans > 60 (> 60); eGFR For Non-African Americans > 60 (> 60)
--- NOTE | 2018-01-13 15:10 | Emergency Department Note ---
Disposition Clinical Impression: Near syncope Chest pain Qualifiers: Chest pain type: unspecified Qualified Code(s): R07.9 - Chest pain, unspecified Disposition: Admitted As Inpatient Condition: Fair Forms: ED Satisfaction Letter Time of Disposition: 15:39 Chest Pain HPI - General Chief Complaint: ED Chest Pain Stated Complaint: CP/ Dizziness Time Seen by Provider: 01/13/18 14:38 Source: patient Limitations: no limitations Vital Signs Reviewed: Yes Nursing Notes Reviewed: Yes - History of Present Illness HPI Narrative: Patient is a 57-year-old male who presents to [facility] ED with a chief complaint of chest pain. 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 Around 1:00 this afternoon, he started experiencing substernal to left-sided chest pain. States he also had 2 episodes during medicine which he became lightheaded and felt like he was about to pass out. Denies any nausea, vomiting. States he did feel a "hot flash". Patient states he has had intermittent chest pains for the last 15 years. He had a heart catheter performed 5 years ago which was negative for any blockages. Patient states his father had a quadruple bypass when he was in his 70s. Patient also admits to hyperlipidemia with his triglycerides in the 400s. States his primary care physician has been following this he is not on any medication for this yet. 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 Denies: nausea, vomiting, dyspnea Treatments prior to arrival chest pain: none - Related Data Home Medications Medication Instructions Recorded Confirmed Biotin 1,000 mcg PO DAILY 12/18/16 09/30/17 Cod Liver Oil 1 each PO DAILY 12/18/16 09/30/17 Folic Acid 0.4 mg PO DAILY 12/18/16 09/30/17 Magnesium Amino Acid Chelate 200 mg PO DAILY 12/18/16 09/30/17 [Magnesium] Selenium 200 mcg PO DAILY 12/18/16 09/30/17 Vitamin K2 40 mcg PO DAILY 12/18/16 09/30/17 Zinc [Zinc Lozenge] 50 mg PO DAILY 12/18/16 09/30/17 Arginine HCl [l-Arginine] 1,000 mg PO DAILY 09/30/17 09/30/17 Ascorbic Acid [Vitamin C] 500 mg PO DAILY 09/30/17 09/30/17 Cholecalciferol (Vitamin D3) 2,000 unit PO DAILY 09/30/17 09/30/17 [Vitamin D3] Previous Rx's Medication Instructions Recorded Docusate [Colace] 100 mg PO BID PRN #30 capsule 10/01/17 Ibuprofen 800 mg PO Q8H #60 tablet 10/01/17 Ondansetron ODT [Zofran ODT] 4 mg PO Q4H PRN #30 tab.rapdis 10/01/17 OxyCODONE/APAP 5/325 [Percocet 1 each PO Q6HR PRN #28 tablet 10/01/17 5/325 MG] Allergies Allergy/AdvReac Type Severity Reaction Status Date / Time phenazopyridine AdvReac Unknown "unable to Verified 09/30/17 08:28 [From Pyridium] get out of bed" per patient All systems ED: reviewed and negative except as stated. Chest Pain PMH - Past Medical History Medical history: Reports: cancer, other Surgical history: Reports: herniorrhaphy, orthopedic, other Psychiatric history: Reports: no psych history - Social History Smoking Status: Never smoker Alcohol use: Reports: occasionally Drug use: Reports: none Physical Exam - General Limitations: no limitations General appearance: alert - Head Head exam: atraumatic, normocephalic, normal inspection - Eye Eye exam: Present: normal appearance, EOMI - ENT ENT exam: normal exam, normal oropharynx, mucous membranes moist - Neck Neck exam: Present: normal inspection, full ROM, trachea midline - Chest Chest inspection: Present: normal inspection, symmetric chest wall rise - Respiratory Respiratory exam: Present: normal lung sounds bilaterally - Cardiovascular Cardiovascular exam: Present: regular rate, normal rhythm, normal heart sounds - Abdominal Exam Abdominal exam: Present: soft, Non-Tender. Absent: tenderness, distention, guarding, rebound, rigidity - Extremities Exam Extremities exam: Present: normal inspection, full ROM. Absent: tenderness, pedal edema - Neurological Exam Neurological exam: Present: alert, oriented X3. Absent: motor sensory deficit - Psychiatric Psychiatric exam: Present: normal affect, normal mood - Skin Skin exam: Present: warm, dry, intact, normal color Course Course Narrative: Patient seen and examined. Chest pain with 2 episodes of near syncope. Cardiopulmonary workup initiated in triage. Lab work appears unremarkable. However due to his concerning story, we will admit for chest pain/syncopal workup. Vital Signs Temperature 98.6 F 01/13/18 14:23 Pulse Rate 72 01/13/18 14:23 Respiratory Rate 18 01/13/18 14:23 Blood Pressure 127/77 01/13/18 14:23 O2 Sat by Pulse Oximetry 97 01/13/18 14:23 Temperature 98.6 F 01/13/18 14:23 Pulse Rate 68 01/13/18 15:09 Respiratory Rate 15 01/13/18 15:09 Blood Pressure 132/94 01/13/18 15:09 O2 Sat by Pulse Oximetry 96 01/13/18 15:09 Oxygen Delivery Oxygen Delivery Room Air Chest Pain - Medical Records Medical records reviewed: Yes I reviewed the patient's medical records. - Lab Data Lab results reviewed: Yes I reviewed the patient's lab results. Result diagrams: 01/13/18 14:44 01/13/18 14:44 Lab Results 01/13/18 01/13/18 01/13/18 Range/Units 14:44 14:44 14:44 WBC 5.3 (4.3-11.1) K/mcL RBC 5.03 (4.19-5.50) M/mcL Hgb 14.5 (12.9-16.9) g/dL Hct 42.8 (37.5-50.1) % MCV 85.1 (83.0-100.0) fL MCH 28.8 (28.0-33.3) pg MCHC 33.9 (31.6-35.5) g/dL RDW 13.0 (11.5-14.5) % Plt Count 159 (140-400) K/mcL MPV 9.7 (9.4-12.4) fL Immature Gran % 0.2 (0-4) % Seg Neutrophils % 57.6 % Lymphocytes % 32.5 % Monocytes % 7.6 % Eosinophils % 1.7 % Basophils % 0.4 % Neutrophils # 3.0 (1.6-8.9) K/mcL Lymphocytes # 1.7 (0.6-4.6) K/mcL Monocytes # 0.4 (0.0-1.3) K/mcL Eosinophils # 0.1 (0.0-0.6) K/mcL Basophils # 0.0 (0.0-0.2) K/mcL Immature Plt Fraction 3.1 (1.1-6.1) % Sodium 139 (136-145) mEq/L Potassium 4.1 (3.5-5.1) mEq/L Chloride 104 (98-107) mEq/L Carbon Dioxide 28 (23-29) mEq/L BUN 18 (6-20) mg/dL Creatinine 0.91 (0.70-1.30) mg/dL Est GFR ( Amer) > 60 (> 60) Est GFR (Non-Af Amer) > 60 (> 60) BUN/Creatinine Ratio 20 (6-26) Glucose 96 (70-105) mg/dL Calculated Osmolality 290 (280-300) Calcium 9.8 (8.6-10.3) mg/dL Troponin I < 0.03 (< 0.04) ng/mL - Radiology Data Radiology results reviewed: Yes I reviewed the patient's radiology results. - EKG Data EKG attestation: Yes I reviewed and interpreted this EKG. EKG results narrative: EKG done at 1430 shows normal sinus rhythm with a rate of 80 beats per minute. No acute ST elevation or depression. Normal axis. Unchanged from prior EKG done 01/31/2016.
[2018-01-13] MEDS ORDERED: Aspirin 81 MG TAB.CHEW PO STA (15:20)
[2018-01-13] MEDS ORDERED: Naloxone 0.4 MG/ML INJ IVP PRN ×2 (19:25→19:27)
[2018-01-13] MEDS ORDERED: traMADol 50 MG TABLET PO PRN (19:27)
[2018-01-13] MEDS ORDERED: Nitroglycerin 0.4 MG TAB.SUBL SL PRN (19:27)
--- NOTE | 2018-01-13 21:55 | Internal Med History&Physical ---
Date of Encounter: 01/13/18 Time of Encounter: 21:00 Assessment and Plan (1) Chest pain Current visit: Yes Status: Acute Acute on chronic chest pain. Pt. reports chest pain for 15 years but today's episode much worse. States discomfort normally 3/10. Today 8/10. Dull ache under left breast that is constant w/dizziness and hot flashes. No cardiac hx but father had quadruple bypass @ 78. Pt. reports heart cath five years ago w/o stents that showed no blockages. Pt. reports HLD but does not take statin. Lipid panel in a.m. labs. Initial troponin <0.03. Trend x2. Echocardiogram. Aspirin. NPO at midnight for exercise stress test. Consider cardiology consult if troponins, echocardiogram, and/or stress test abnormal. Pt. discussed w/Dr. Lund who is in agreement w/plan of care. Pt. is high risk for cardiac event based on current chest pain, hx of chest pain for 15 years, familial risk factors. Observation. Qualifiers: Chest pain type: other chest pain Qualified Code(s): R07.89 - Other chest pain; R07.8 - Other chest pain (2) Dizziness Current visit: Yes Status: Acute Acute dizziness/lightheadedness reported during chest pain episode today. Falls/ safety precautions, up with assist, up to bathroom w/assist only. Supplemental O2 PRN. (3) HLD (hyperlipidemia) Current visit: Yes Status: Chronic Hx of high cholesterol but pt. states he does not take anything for this. PCP aware and monitoring. Lipid panel in a.m. labs. Qualifiers: Hyperlipidemia type: pure hypercholesterolemia Qualified Code(s): E78.00 - Pure hypercholesterolemia, unspecified; E78.0 - Pure hypercholesterolemia (4) DVT prophylaxis Current visit: Yes Status: Acute Lovenox 40 mg 0600 SQ for DVT prophylaxis. Monitor pt. for signs of bleeding. Internal Medicine - H&P: HPI Chief complaint: Chest pain Admitted From: Emergency Dept Plans for Post Hospital Care: Home History of present illness: Mr. 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 Pt. describes pain as left-sided under his breast w/o radiation and he describes as a dull ache that is constant. Pt. also reports becoming dizzy/lightheaded and feeling hot. Pt. reports that he has had this chest discomfort for 15 years. He states he had heart cath done five years ago which showed no blockages. 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 Works out lifting 20 lb weights. Pt. does admit having high cholesterol in past but is unsure of level now. Pt. denies recent illness, fever, chills, nausea, vomiting, headache , changes in vision, SOB, cough, unusual bleeding, numbness, tingling, abdominal pain, diarrhea, constipation, pre-syncope, or syncope. Past Med Surg Social Fam HX - Past Medical History Source: patient, old records reviewed, obtained from family Medical history: cancer (Basal cell skin carcinoma of the left ear three years ago), other Psychiatric history: no psych history - Past Surgical History Surgical History: herniorrhaphy, orthopedic, other (Left knee meniscus repair x2 , left shoulder repair) - Social History Smoking Status: Never smoker Smokeless Tobacco Status: No Alcohol use: occasionally Drug use: none Occupational status: employed Current living situation: Home, With Family Activity Level: Independent ambulation, Very active Recent Out of Country Travel Within the Last 8 Weeks: No Exposure or Possible Exposure to Illness During Travel: No - Family History Father Age: 79 Race: Family Member Ethnicity: Non- Living Status: Still Living Hx Family Cardiac Disorders: Yes (Quad bypass @ 78, HTN, HLD) Mother Age: 81 Race: Family Member Ethnicity: Non- Living Status: Still Living Hx Family Musculoskeletal Disorders: Yes (Knee problems) Brother Race: Family Member Ethnicity: Non- Living Status: Still Living Hx Family Medical Disorders: No Sister Race: Family Member Ethnicity: Non- Living Status: Still Living Hx Family Musculoskeletal Disorders: Yes (Knee problems) Internal Medicine - H&P: Meds Biotin 1,000 mcg PO DAILY 12/18/16 [History] Cod Liver Oil 1 cap PO DAILY 12/18/16 [History] Folic Acid 0.4 mg PO DAILY 12/18/16 [History] Magnesium Amino Acid Chelate [Magnesium] 200 mg PO WESA 12/18/16 [History] Selenium 200 mcg PO WESA 12/18/16 [History] Vitamin K2 80 mcg PO DAILY 12/18/16 [History] Zinc [Zinc Lozenge] 50 mg PO WESA 12/18/16 [History] Ascorbic Acid [Vitamin C] 500 mg PO DAILY 09/30/17 [History] Cholecalciferol (Vitamin D3) [Vitamin D3] 2,000 unit PO DAILY 09/30/17 [History] Turm/Ging/Caleb/Yuc/Mayur/Silverio/Hor [Tumersaid Tablet] 1 tab PO DAILY 01/13/18 [ History] Vitamin B Complex [B Complex] 1 tab PO DAILY 01/13/18 [History] 3 Allergy/AdvReac Type Severity Reaction Status Date / Time phenazopyridine AdvReac Unknown "unable to Verified 09/30/17 08:28 [From Pyridium] get out of bed" per patient All Systems PM: A 10-system review of systems was performed and is negative for pertinent findings except as documented above in the HPI. - Constitutional Constitutional: as per HPI, no chills, no fever(s), no night sweats - EENT Eyes: no change in vision, no discharge, no pain, no photophobia Ears: no ear discharge, no ear pain, no tinnitus Nose, mouth and throat: no dysphagia, no nasal discharge, no neck pain, no sore throat - Breasts Breasts: as per HPI - Cardiovascular Cardiovascular ROS IM: as per HPI, chest pain (Left-sided dull ache w/o radiation), lightheadedness, no diaphoresis, no dyspnea, no palpitations, no syncope - Respiratory Respiratory: no cough, no dyspnea, no wheezing, no excessive phlegm production - Gastrointestinal Gastrointestinal: no abdominal pain, no diarrhea, no hematemesis, no hematochezia, no melena, no nausea, no vomiting - Genitourinary Genitourinary ROS male: as per HPI - Musculoskeletal Musculoskeletal ROS IM: no numbness, no tingling - Integumentary Integumentary IM: no rash, no unusual bruising - Neurological Neurological ROS: as per HPI, dizziness, no confusion, no convulsions, no focal weakness, no numbness, no tingling, no tremor(s) - Psychiatric Psychiatric: as per HPI, anxiety - Endocrine Endocrine IM: as per HPI - Hematologic/Lymphatic Hematologic/Lymphatic: no easy bruising - Allergic/Immunologic Allergic/Immunologic: as per HPI - Constitutional Vitals: Temp Pulse Resp BP Pulse Ox 97.7 F 68 14 131/75 94 01/13/18 20:26 01/13/18 20:26 01/13/18 20:26 01/13/18 20:26 01/13/18 20:26 General appearance: Present: cooperative, mild distress (Reports mild, dull ache in left chest), A&O X 3, pleasant, answers questions appropriately - Head Head exam: Present: atraumatic, normocephalic - Eye Eye exam: Present: PERRL, conjuntiva pink, sclera anicteric Pupils: Present: PERRL - ENT ENT exam: Present: normal exam - Neck Neck exam general surgery: Present: supple, trachea midline. Absent: lymphadenopathy - Respiratory Respiratory exam: Present: CTAB. Absent: accessory muscle use, rales, rhonchi, wheezes - Cardiovascular Cardiovascular exam: Present: RRR, +S1, +S2. Absent: diastolic murmur, gallop, rubs, systolic murmur - GI/Abdominal GI/Abdominal exam: Present: normal bowel sounds, soft, no peritoneal signs. Absent: distended, tenderness - Rectal Rectal exam: Present: deferred - Additional comments: exam deferred. - Extremities Exam Extremities exam: Present: warm, radial pulses palpable and symmetrical. Absent : calf tenderness, cyanotic, pedal edema - Back Exam Back exam: Present: normal inspection - Neurological Exam Neurological exam: Present: CN II-XII intact, oriented X3, no focal deficits. Absent: pronater drift, facial droop, speech deficit - Psychiatric Psychiatric exam: Present: normal affect, normal mood - Skin Skin exam: Present: dry, intact Internal Med - H&P Results - Labs CBC & Chem 7: 01/13/18 14:44 01/13/18 14:44 Labs: Cardiac Enzymes 01/13/18 Range/Units 19:40 Troponin I < 0.03 (< 0.04) ng/mL - EKG Data EKG shows normal: sinus rhythm - EKG Data Prior EKG available for review: yes Interpretation IM: normal EKG EKG comments: 01/13/18 22:11 EKG dated 01/31/16 shows sinus rhythm. EKG dated 01/13/18 shows sinus rhythm and normal ECG. - Diagnostic Studies Chest x-ray Additional comments: Impressions Chest X-Ray 01/13/18 14:27 IMPRESSION: Stable negative chest. D/ / Gagan Ramirez MD / Gagan Ramirez MD Interpreting Provider: Gagan Ramirez MD
[2018-01-14 02:02] LABS: Basophils % 0.4 %; Eosinophils # 0.2 K/mcL (0.0-0.6); Eosinophils % 2.9 %; Hematocrit 41.6 % (37.5-50.1); Hemoglobin 14.4 g/dL (12.9-16.9); Immature Granulocytes % 0.2 % (0-4); Lymphocytes # 1.8 K/mcL (0.6-4.6); Lymphocytes % 32.3 %; Mean Corpuscular HGB Conc 34.6 g/dL (31.6-35.5); Mean Corpuscular Hemoglobin 28.9 pg (28.0-33.3); Mean Corpuscular Volume 83.4 fL (83.0-100.0); Mean Platelet Volume 9.7 fL (9.4-12.4); Monocytes # 0.6 K/mcL (0.0-1.3); Monocytes % 10.8 %; Platelet Count 136 K/mcL (140-400); Red Blood Count 4.99 M/mcL (4.19-5.50); Segmented Neutrophils % 53.4 %
[2018-01-14 02:40] LABS: BUN/Creatinine Ratio 18 (6-26); Blood Urea Nitrogen 17 mg/dL (6-20); Calcium 9.3 mg/dL (8.6-10.3); Carbon Dioxide 27 mEq/L (23-29); Chloride 105 mEq/L (98-107); Chol/HDL Ratio 6.1 (0-4.9); Cholesterol 171 mg/dL (< 200); Glucose 87 mg/dL (70-105); HDL Cholesterol 28 mg/dL (40-59); LDL Cholesterol,Calculated 67 mg/dL (0-99); Magnesium 2.2 mg/dL (1.6-2.6); Osmolality,Calculated 287 (280-300); Potassium 3.5 mEq/L (3.5-5.1); Sodium 138 mEq/L (136-145); Triglycerides 382 mg/dL (< 150); eGFR For African Americans > 60 (> 60); eGFR For Non-African Americans > 60 (> 60)
[2018-01-14] MEDS ORDERED: *HR* Enoxaparin 40 MG/0.4 ML SYRINGE SQ SCH (06:00)
[2018-01-14] MEDS ORDERED: Aspirin 81 MG TAB.CHEW PO SCH (09:00)
--- NOTE | 2018-01-14 13:48 | Discharge Summary ---
Date of Encounter: 01/14/18 Time of Encounter: 13:40 - Discharge Diagnosis (1) Chest pain Status: Acute Qualifiers: Chest pain type: other chest pain Qualified Code(s): R07.89 - Other chest pain; R07.8 - Other chest pain (2) DVT prophylaxis Status: Acute - Discharge Medications Home Medications: Biotin 1,000 mcg PO DAILY 12/18/16 [History] Cod Liver Oil 1 cap PO DAILY 12/18/16 [History] Folic Acid 0.4 mg PO DAILY 12/18/16 [History] Magnesium Amino Acid Chelate [Magnesium] 200 mg PO WESA 12/18/16 [History] Selenium 200 mcg PO WESA 12/18/16 [History] Vitamin K2 80 mcg PO DAILY 12/18/16 [History] Zinc [Zinc Lozenge] 50 mg PO WESA 12/18/16 [History] Ascorbic Acid [Vitamin C] 500 mg PO DAILY 09/30/17 [History] Cholecalciferol (Vitamin D3) [Vitamin D3] 2,000 unit PO DAILY 09/30/17 [History] Turm/Ging/Caleb/Yuc/Mayur/Silverio/Hor [Tumersaid Tablet] 1 tab PO DAILY 01/13/18 [ History] Vitamin B Complex [B Complex] 1 tab PO DAILY 01/13/18 [History] Allergies/Adverse Reactions: 3 Allergy/AdvReac Type Severity Reaction Status Date / Time phenazopyridine AdvReac Unknown "unable to Verified 09/30/17 08:28 [From Pyridium] get out of bed" per patient Procedures/tests Complete & Pending: Procedures Performed prior 72 hours Category Date Time Status NM jennifer perf SPECT multi [NM] Routine Exams 01/13/18 19:28 Taken EV echocardiogram Routine Y 01/14/18 10:30 Completed SP exercise nuclear stress Routine Y 01/13/18 19:28 Completed Date of admission: 01/13/18 16:47 Primary care physician: Julio Rolle MD Consults: 01/13/18 18:36 Consult to Repairer Typewriter [CONS] Routine Reason for SW Consult: patient would like information for advance directives. Discharging clinician: Tanesha Yanes Anticipated date of discharge: 01/14/18 - Patient Status Condition: Fair - Discharge Instructions Follow Up With: Julio Rolle MD [Primary Care Provider] - Hospital course: Mr. Pop is a 57 year old male - Time Spent with Patient Total time spent providing and/or coordinating discharge services: - Constitutional Vitals: Temp Pulse Resp BP Pulse Ox 97.8 F 65 16 116/80 96 01/14/18 11:42 01/14/18 11:42 01/14/18 11:42 01/14/18 11:42 01/14/18 11:42 General appearance: Present: cooperative, mild distress (Reports mild, dull ache in left chest), A&O X 3, pleasant, answers questions appropriately
[2018-01-14 14:15] VITALS: BP 145/83
--- NOTE | 2018-01-14 14:47 | Discharge Summary ---
Date of Encounter: 01/14/18 Time of Encounter: 13:50 - Discharge Diagnosis (1) Chest pain Priority: Primary Status: Acute Comments: presented with chest pain that has been present for 15 years, worsening on day of presentation. CXR non-acute. Serial troponins negative, EKG without acute ST changes. TTE with preserved EF. Stress test negative for ischemia. Etiology unknown however do not suspect cardiac cause as chest pain has been present for 15 years. Possibly musculoskeletal as patient was engaging in physical activity and when worsening chest pain occurred. Recommend follow-up with PCP Qualifiers: Chest pain type: other chest pain Qualified Code(s): R07.89 - Other chest pain; R07.8 - Other chest pain (2) High triglycerides Priority: Secondary Status: Acute Comments: triglycerides 382. Lifestyle/dietary modifications encouraged. Follow-up with PCP for repeat lipid panel - Discharge Medications Home Medications: Biotin 1,000 mcg PO DAILY 12/18/16 [History] Cod Liver Oil 1 cap PO DAILY 12/18/16 [History] Folic Acid 0.4 mg PO DAILY 12/18/16 [History] Magnesium Amino Acid Chelate [Magnesium] 200 mg PO WESA 12/18/16 [History] Selenium 200 mcg PO WESA 12/18/16 [History] Vitamin K2 80 mcg PO DAILY 12/18/16 [History] Zinc [Zinc Lozenge] 50 mg PO WESA 12/18/16 [History] Ascorbic Acid [Vitamin C] 500 mg PO DAILY 09/30/17 [History] Cholecalciferol (Vitamin D3) [Vitamin D3] 2,000 unit PO DAILY 09/30/17 [History] Turm/Ging/Caleb/Yuc/Mayur/Silverio/Hor [Tumersaid Tablet] 1 tab PO DAILY 01/13/18 [ History] Vitamin B Complex [B Complex] 1 tab PO DAILY 01/13/18 [History] Allergies/Adverse Reactions: 3 Allergy/AdvReac Type Severity Reaction Status Date / Time phenazopyridine AdvReac Unknown "unable to Verified 09/30/17 08:28 [From Pyridium] get out of bed" per patient Procedures/tests Complete & Pending: Procedures Performed prior 72 hours Category Date Time Status NM jennifer perf SPECT multi [NM] Routine Exams 01/13/18 19:28 Taken EV echocardiogram Routine Y 01/14/18 10:30 Completed SP exercise nuclear stress Routine Y 01/13/18 19:28 Completed Date of admission: 01/13/18 16:47 Primary care physician: Julio Rolle MD Consults: 01/13/18 18:36 Consult to Golf Ball Cover Treater [CONS] Routine Reason for SW Consult: patient would like information for advance directives. Discharging clinician: Tanesha Yanes Anticipated date of discharge: 01/14/18 - Patient Status Disposition: Home, Self-Care Condition: Good Functional capacity at discharge: independent ambulation Overall status at discharge: patient is back to baseline - Discharge Instructions Instructions: Chest Pain (DC) Follow Up With: Julio Rolle MD [Primary Care Provider] - - Diet and Activity Activity: increase activity as tolerated Diet: advance to your usual diet Interval History: Seen and examined at bedside, patient is new to me. Information obtained from chart review and patient report. He still complaining of dull left-sided chest pain. Patient reports chest pain is always there, he tells me has been there for 15 years but says CP was worse yesterday and associated with an episode of lightheadedness and hot flash. No SOB. Hospital course: See assessment and plan for hospital course - Time Spent with Patient Total time spent providing and/or coordinating discharge services: - Constitutional Vitals: Temp Pulse Resp BP Pulse Ox 97.8 F 65 16 116/80 96 01/14/18 11:42 01/14/18 11:42 01/14/18 11:42 01/14/18 11:42 01/14/18 11:42 General appearance: Present: cooperative, A&O X 3, pleasant, answers questions appropriately - Head Head exam: Present: atraumatic, normocephalic - Eye Eye exam: Present: PERRL, conjuntiva pink, sclera anicteric Pupils: Present: PERRL - Neck Neck exam general surgery: Present: supple, trachea midline. Absent: lymphadenopathy - Respiratory Respiratory exam: Present: CTAB. Absent: accessory muscle use, rales, rhonchi, wheezes - Cardiovascular Cardiovascular exam: Present: RRR, +S1, +S2. Absent: diastolic murmur, gallop, rubs, systolic murmur - GI/Abdominal GI/Abdominal exam: Present: normal bowel sounds, soft, no peritoneal signs. Absent: distended, tenderness - Extremities Exam Extremities exam: Present: warm, radial pulses palpable and symmetrical. Absent : calf tenderness, cyanotic, pedal edema - Neurological Exam Neurological exam: Present: CN II-XII intact, oriented X3, no focal deficits. Absent: pronater drift, facial droop, speech deficit - Skin Skin exam: Present: dry, intact
== END 2018-01-14 15:05 | disposition home or self-care (01) ==
LOC: 3BNU 14:08 → EMEROO 14:08 → 3BNU 17:49
PROVIDERS: ADMIT Internal Medicine; ATTEND Registered Nurse